=== PATIENT | female | born 1990 | race Two or more races ===

== ENCOUNTER 2024-06-01 07:47 | Emergency (ER) | payer MEDICAID, SELFPAY ==
[2024-06-01 08:01] VITALS: BP 131/105; BP 135/92; PULSE 110; PULSE 99; RESP 18; TEMP 36.4; O2SAT 100; O2SAT 98; BMI 30.8
--- NOTE | 2024-06-01 10:47 | PC.NURSE ---
Patient yelling at this RN while dealing with another patient in waiting room, security aware
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
--- NOTE | 2024-06-01 11:23 | MHC.CARE ---
Call from patient's parents, would like patient to call them and left phone numbers in case anyone needs to contact them [phone] or [phone]
--- NOTE | 2024-06-01 12:00 | MHC.EDTECH ---
Patient has a nickels, she said she with keep it with her , all her belonging in the locker #3
--- NOTE | 2024-06-01 12:00 | MHC.EDTECH ---
Patient got changed over. blood and urine was taking and sanded to the lab waiting for result. Patient is resting quietly in the bed
[2024-06-01 12:03] LABS: Basophils Percent Auto 0.3 % (0-2); Eosinophils Percent Auto 0.1 % (0-4); Hematocrit 35.4 % (37.0-47.0); Hemoglobin 12.2 g/dl (12.0-16.0); Imm Gran Abs Auto 0.04 X10*3/uL (0.00-0.03); Imm Gran Pct Auto 0.3 % (0.0-0.4); Lymphocytes Percent Auto 19.2 % (20-40); MANUAL DIFF FLAG SCAN; Mean Corpuscular HGB Conc 34.5 g/dl (31.0-35.0); Mean Corpuscular Hemoglobin 29.5 pg (27.0-33.0); Mean Corpuscular Volume 85.5 fL (80.0-98.0); Mean Platelet Volume 9.2 fL (9.4-12.3); Monocytes Absolute Auto 1.9 X10*3/uL (0.1-1.2); Monocytes Percent Auto 11.9 % (2-11); Neutrophils Absolute Auto 10.8 x10*3/uL (2.0-8.3); Neutrophils Percent Auto 68.2 % (45-73); Platelet Count 331 X10*3/uL (160-400); Red Blood Count 4.14 X10*6/uL (4.20-5.50); Red Cell Distribution Width 12.5 % (11.0-16.0); SCAN SMEAR FLAG 1; White Blood Count 15.8 X10*3/uL (4.8-10.8)
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
[2024-06-01 12:19] LABS: Anion Gap 11 (12-20); Blood Urea Nitrogen 17 mg/dL (9-16); Calcium 9.2 mg/dL (8.4-10.2); Carbon Dioxide 21 mmol/L (22-29); Chloride 109 mmol/L (96-108); Creatinine Clr Calc Pharmacy 135.7; Estimated Glomerular Filt Rate > 60; Ethanol < 10 mg/dL; Glucose Random 130 mg/dL (60-115); Potassium 3.4 mmol/L (3.3-5.1); Sodium 138 mmol/L (135-145)
[2024-06-01 12:20] LABS: Salicylate < 5.0 mg/dL (15-30)
[2024-06-01 12:22] LABS: Appearance Urine Clear; Color Urine Yellow; Glucose Urine UA Negative (Negative); Leukocyte Esterase Urine Negative (Negative); Nitrite Urine Negative (Negative); PH 5.5 (5.0-9.0); Specific Gravity - Urine >= 1.030 (1.005-1.025); Urine Blood Negative (Negative); Urine Ketones >=160 mg/dL (Negative); Urine Protein Trace mg/dL (Neg-Trace)
[2024-06-01 12:23] LABS: UPreg QC Valid YES; Urine Pregnancy NEGATIVE (NEGATIVE)
[2024-06-01 12:24] LABS: SLIDE REVIEW VERIFIED
[2024-06-01 12:32] LABS: Amphetamine Screen Urine Not Detected (Not Detect); Barbiturates, Urine Not Detected (Not Detect); Benzodiazepines Screen Urine Not Detected (Not Detect); Buprenorphine Scr Not Detected (Not Detect); Cannabinoid Screen Urine Not Detected (Not Detect); Cocaine Screen Urine POSITIVE (Not Detect); Fentanyl, urine Not Detected (Not Detect); Methadone Screen, Urine Not Detected (Not Detect); Opiate Screen Urine Not Detected (Not Detect); Oxycodone Screen Urine Not Detected (Not Detect); Phencyclidine Screen Urine Not Detected (Not Detect)
--- NOTE | 2024-06-01 12:47 | PC.NURSE ---
Patient brought back from waiting room, initially very resistant to plant changer, yelling at security and staff for over 10 minutes about her rights and how she will get all the staff fired. Ultimately, patient consented to plant changer w/ EDT [place]. Patient now resting quietly on stretcher at this time, talking to herself.
[2024-06-01 13:21] VITALS: BP 144/76; PULSE 93; RESP 14; TEMP 36.6; O2SAT 99
--- NOTE | 2024-06-01 17:02 | PC.NURSE ---
Patient observed to still have her sports bra on as well as having a rosary on, despite being changed over in the main. This RN attempted to remove items from pts possession. Pt refused to give items to this RN, then became verbally confrontational with this RN, stating I aint no fucking bitch, no one is taking my shit . This RN attempted to verbalize understanding but also educated patient as to why she needs to turn over items to staff. Pt continued to refuse. This RN astrider texted Bindu, recruiter account manager who requested security be involved
[2024-06-01] MEDS: LORazepam 1 MG TABLET 2 MG PO (17:28)
--- NOTE | 2024-06-01 17:41 | PC.NURSE ---
pt willingly took PO Ativan, plan for security to assist with retrieving sports bra and rosary from patient once patient is calmer
--- NOTE | 2024-06-01 18:17 | PC.NURSE ---
Security came to assist with taking rosary and sports bra. Pt continues to refuse to give up rosary but was willing to give security her sports bra. This was talked over with BRITTANY Cormier who stated it was fine for the time being and we can re-address it when an additional leadership member comes in
--- NOTE | 2024-06-01 19:29 | PC.NURSE ---
patient appears to remain at rest presently respirations are even and unlabored patient appears in no distress.
[2024-06-01] MEDS: Benztropine Mesylate 1 MG TABLET PO (20:06)
[2024-06-01] MEDS: Famotidine 20 MG TABLET PO (20:06)
[2024-06-01] MEDS: OXcarbazepine 300 MG TABLET PO (20:06)
[2024-06-01] MEDS: HaloperidoL 5 MG TABLET PO (20:06)
[2024-06-01] MEDS: Nicotine Polacrilex 2 MG GUM 4 MG BUCCAL (20:11)
[2024-06-01 20:32] VITALS: BP 142/87; PULSE 108; RESP 18; TEMP 36.5; O2SAT 98
--- NOTE | 2024-06-01 21:46 | MHC.CARE ---
This hand sign writer spoke to Ebony from [facility] in [place] who stated that she is willing to review the patient to accept for a short term stabilization and then work with [facility] and [facility] in [place] to transition her back to her planned DM bed as she is aware that [facility] is requesting that she receives some type of treatment prior to returning to her planned bed. This hand sign writer attempted to speak to pt about this plan however, at that time she remained uncooperative and resistant to any level of care as she remains consistent that she would like to return to her previous placement at [facility] and does not feel like she needs to be locked up on an inpatient unit or in a CCS bed in [place] because 'those are for people in a crisis . At this time the disposition is for a follow up as she does not appear in need of a higher level of care if she is agreeable to a [facility] bed however, if not willing to accept placement if approved by [facility] it is possible that she will be found appropriate for a higher level of care for a short term stabilization as it appears treatment is needed prior to transitioning back to her planned [facility] respite bed. Ebony stated that she has had the pt in the past and is aware that she can be defiant and uncooperative and stated that she would still try to accommodate her if a bed is still available tomorrow in order to assist with transitioning her back to her planned respite bed after a few days. Ebony is aware at this time pt was not agreeable to a possible [facility] bed however, stated to have the CARE TEAM follow up tomorrow as she suspects if the options were presented as she is agreeable to a [facility] bed or she will remain in the ED for a higher level of care that she will become more agreeable and understands that currently she remains resistant. This hand sign writer inquired if a formal CCS referral needs to be completed and Ebony stated that if pt becomes agreeable and a bed is still open, which she stated she will try and hold a bed in case she becomes more open to the idea of a short term stay at [facility] that a formal referral does not need to be completed at this time and requested that labs, utox, and the evaluation can be faxed to the [phone]. Information will be passed to the first shift care child care team lead and staff and further follow up will occur as needed moving forward.
[2024-06-02 06:12] VITALS: RESP 16
[2024-06-02] MEDS: OXcarbazepine 300 MG TABLET PO (08:56)
[2024-06-02] MEDS: Nicotine Polacrilex 2 MG GUM 4 MG BUCCAL (08:56)
[2024-06-02] MEDS: Famotidine 20 MG TABLET PO (08:56)
[2024-06-02] MEDS: FLUoxetine HCl 20 MG CAPSULE PO (08:56)
[2024-06-02] MEDS: HaloperidoL 5 MG TABLET PO (08:56)
--- NOTE | 2024-06-02 10:11 | PHA.MEDREC ---
Addendum entered by Randy Caraballo RPh 06/02/24 10:13: Reviewed by [facility] Original Note: Pharmacy Consult ? Medication Reconciliation Pharmacy has reviewed the medication reconciliation done by nursing. Claims match med rec.
[2024-06-02 10:37] VITALS: BP 147/82; PULSE 72; RESP 18; TEMP 37.1; O2SAT 99
== END 2024-06-02 10:55 | disposition home or self-care (01) ==
PROVIDERS: Emergency Medicine; Emergency Provider Emergency Medicine; PCP Internal Medicine
DX: F19.10 Other psychoactive substance abuse, uncomplicated (principal); F41.9 Anxiety disorder, unspecified
CPT/HCPCS: 36415; 80048; 80179; 80307; 81003; 81025; 85025; 99285; S9485